=== PATIENT | female | born 1965 | race Caucasian/White ===

== ENCOUNTER → 2016-05-19 | Outpatient (CLI) | payer BC ==
[~2016-05-19] MED LIST: ASPI325T PO; DULO60CA46 PO; FAMO-137 PO; HYDR-4246 PO; INSU100I3 SQ; INSU3INS3 SQ; LEVO125T11 PO; METF1000 PO; ONDA4TAB7 PO; PANT40TA PO; PROC-14 PO; ROSU10TA25 PO; SUCR1TAB PO
== END ==
LOC: NEU 15:17
PROVIDERS: ATTEND Psychiatry & Neurology Neurology
DX: E11.40 Type 2 diabetes mellitus with diabetic neuropathy, unspecified (principal); G56.03 Carpal tunnel syndrome, bilateral upper limbs; Z79.4 Long term (current) use of insulin
CPT/HCPCS: 95886; 95912